=== PATIENT | male | born 1960 | race African-American/Black ===

== ENCOUNTER 2022-04-12 13:01 | Inpatient (IN) | payer MEDICARE, MEDICAID ==
[~2022-04-12] VITALS: Ht 182.9 cm; Wt 72.1 kg
[~2022-04-12 13:01] MED LIST: insulin
[2022-04-12] MEDS ORDERED: SODIUM CHLORIDE 0.9% 500 ML IV ONE (13:45)
[2022-04-12 16:15] LABS: BASOPHILS % 0.5 % (0.0-2.0); EOSINOPHILS % 2.1 % (0.0-5.0); HEMATOCRIT. 38.8 % (42.0-52.0); HEMOGLOBIN. 12.7 g/dL (14.0-18.0); MEAN CORPUSCULAR VOLUME 82.3 fL (80.0-94.0); MEAN PLATELET VOLUME 9.2 fl (7.4-10.4); NEUTROPHILS % 69.4 % (40.0-76.0); PLATELET 333 x1000/uL (130-400); RED BLOOD CELL COUNT 4.72 mill/uL (4.7-6.1); RED CELL DISTRIBUTION WIDTH 15.4 % (11.6-14.6)
[2022-04-12 16:20] LABS: CHLORIDE 109 mEq/L (98-107)
[2022-04-12 16:31] LABS: ETHANOL BLOOD < 10 mg/dL
[2022-04-12] MEDS ORDERED: GUAIFENESIN 200MG/10ML SUGAR FREE UDC PO PRN (17:00)
[2022-04-12] MEDS ORDERED: DEXTROSE 50% WATER 50ML SYRINGE IV PRN (17:00)
[2022-04-12] MEDS: BLOOD SUGAR DIAGNOSTIC STRIP TEST SCH ×2 (17:00→21:38)
[2022-04-12] MEDS ORDERED: ONDANSETRON HCL 4MG/2ML INJ IV PRN (17:00)
[2022-04-12] MEDS ORDERED: NITROGLYCERIN 0.4MG TABLET SL SL PRN (17:00)
[2022-04-12] MEDS ORDERED: ZOLPIDEM TARTRATE 5MG TABLET PO PRN (17:00)
[2022-04-12] MEDS ORDERED: TRAMADOL 50MG TABLET PO PRN (17:00)
[2022-04-12] MEDS ORDERED: KETOROLAC 15MG/ML VIAL IV PRN (17:00)
[2022-04-12] MEDS ORDERED: CLONIDINE 0.1MG TABLET PO PRN (17:00)
[2022-04-12] MEDS ORDERED: DOCUSATE SODIUM 100MG CAPSULE PO PRN (17:00)
[2022-04-12] MEDS ORDERED: MAGNESIUM/ALUMINUM HYDROXIDE/SIMETHICONE 30ML UDC PO PRN (17:00)
[2022-04-12] MEDS ORDERED: ACETAMINOPHEN 325MG TABLET PO PRN ×2 (17:00)
[2022-04-12] MEDS ORDERED: IPRATROPIUM/ALBUTEROL 0.5-3(2.5)MG/3ML NEB NEB PRN (17:00)
[2022-04-12 17:44] LABS: ETHANOL BLOOD < 10 mg/dL; HDL CHOLESTEROL 51 mg/dL (40-59); LDL CHOLESTEROL 31 mg/dL (5-100); TOTAL IRON BINDING CAPACITY 261 ug/dL (250-450)
[2022-04-12 18:08] LABS: FOLIC ACID (FOLATE) SERUM 7.5 ng/mL (>5.38)
[2022-04-12] MEDS: ENOXAPARIN 40MG/0.4ML SYR SUBCUT SCH (19:34)
[2022-04-12] MEDS: INSULIN LISPRO 100 UNITS/ML SUBCUT SCH ×2 (19:40→21:00)
[2022-04-12] MEDS: LISINOPRIL 20MG TABLET PO SCH (20:45)
[2022-04-12 21:10] VITALS: BP 99/58
[2022-04-12] MEDS: LEVETIRACETAM 500MG TABLET PO SCH (21:45)
[2022-04-13 00:49] LABS: CREATINE KINASE MB FRACTION 1.4 ng/mL (0.5-3.6)
[2022-04-13] MEDS ORDERED: TOPUD PO (02:45)
[2022-04-13] MEDS ORDERED: ZINC1CAP2 PO (03:24)
[2022-04-13] MEDS ORDERED: INSLIS SUBCUT (03:24)
[2022-04-13] MEDS ORDERED: ONDA4TAB50 MT (03:24)
[2022-04-13] MEDS ORDERED: MULT-1146 MT (03:24)
[2022-04-13] MEDS ORDERED: HYDR-4134 MT (03:24)
[2022-04-13] MEDS ORDERED: LEVE500T19 MT (03:24)
[2022-04-13] MEDS ORDERED: LOSA100T32 MT (03:24)
[2022-04-13] MEDS ORDERED: HYDR-4135 PO (03:24)
[2022-04-13] MEDS ORDERED: RISP0.2514 PO (03:24)
[2022-04-13] MEDS ORDERED: LORA2DIS5 SQ (03:24)
[2022-04-13] MEDS ORDERED: LORA2TAB95 MT (03:24)
[2022-04-13] MEDS ORDERED: ASCO500C18 MT (03:24)
[2022-04-13] MEDS ORDERED: B50 MT (03:24)
[2022-04-13] MEDS ORDERED: AMLO5TAB88 MT (03:24)
[2022-04-13] MEDS: BLOOD SUGAR DIAGNOSTIC STRIP TEST SCH ×4 (06:57→20:11)
[2022-04-13] MEDS: INSULIN LISPRO 100 UNITS/ML SUBCUT SCH ×4 (06:58→20:11)
[2022-04-13 07:11] LABS: CREATINE KINASE MB FRACTION 1.8 ng/mL (0.5-3.6)
[2022-04-13 08:00] VITALS: BP 112/60
[2022-04-13] MEDS: ASPIRIN 325MG EC TABLET PO SCH (09:10)
[2022-04-13] MEDS: LEVETIRACETAM 500MG TABLET PO SCH ×2 (09:10→21:19)
[2022-04-13] MEDS: LISINOPRIL 20MG TABLET PO SCH ×2 (09:12→21:19)
[2022-04-13 11:46] VITALS: BP 109/64
[2022-04-13 15:51] VITALS: BP 112/64
[2022-04-13 17:49] LABS: BASOPHILS % 0.7 % (0.0-2.0); EOSINOPHILS % 3.7 % (0.0-5.0); HEMATOCRIT. 32.7 % (42.0-52.0); HEMOGLOBIN. 10.8 g/dL (14.0-18.0); LYMPHOCYTES % 36.6 % (20.0-50.0); MEAN PLATELET VOLUME 8.9 fl (7.4-10.4); MONOCYTES % 7.4 % (2.0-8.0); NEUTROPHILS % 51.6 % (40.0-76.0); PLATELET 289 x1000/uL (130-400); RED BLOOD CELL COUNT 3.99 mill/uL (4.7-6.1); RED CELL DISTRIBUTION WIDTH 14.8 % (11.6-14.6)
[2022-04-13] MEDS: ENOXAPARIN 40MG/0.4ML SYR SUBCUT SCH (18:00)
[2022-04-13 18:16] LABS: CHLORIDE 111 mEq/L (98-107)
[2022-04-13 18:24] LABS: PHOSPHORUS 2.6 mg/dL (2.5-4.9)
[2022-04-13 19:45] LABS: CLARITY URINE CLEAR (CLEAR); COLOR URINE YELLOW (YELLOW); KETONES URINE NEGATIVE (NEGATIVE); LEUKOCYTE ESTERASE URINE NEGATIVE (NEGATIVE); NITRITE URINE NEGATIVE (NEGATIVE); OCCULT BLOOD URINE NEGATIVE (NEGATIVE); PH URINE 5.5 (4.5-8.0); PROTEIN URINE 2+ (NEGATIVE); UROBILINOGEN URINE 0.2 E.U./dL (0.2-1.0)
[2022-04-13 20:00] VITALS: BP 149/78
[2022-04-13 20:05] LABS: *AMPHETAMINES SCREEN URINE NEGATIVE (NEGATIVE); *BARBITURATES SCREEN URINE NEGATIVE (NEGATIVE); *BENZODIAZEPINES SCREEN URINE NEGATIVE (NEGATIVE); *COCAINE SCREEN URINE NEGATIVE (NEGATIVE); CANNABINOID URINE SCREEN NEGATIVE (NEGATIVE); METHADONE URINE SCREEN NEGATIVE (NEGATIVE); OPIATES URINE SCREEN NEGATIVE (NEGATIVE); PHENCYCLIDINE URINE SCREEN NEGATIVE (NEGATIVE)
[2022-04-14] VITALS: BP 146/89
[2022-04-14 04:00] VITALS: BP 126/67
[2022-04-14] MEDS: BLOOD SUGAR DIAGNOSTIC STRIP TEST SCH ×2 (06:57→12:20)
[2022-04-14] MEDS: INSULIN LISPRO 100 UNITS/ML SUBCUT SCH ×2 (07:48→12:32)
[2022-04-14 08:10] VITALS: BP 149/99
[2022-04-14] MEDS: LEVETIRACETAM 500MG TABLET PO SCH (08:13)
[2022-04-14] MEDS: LISINOPRIL 20MG TABLET PO SCH (08:13)
[2022-04-14] MEDS: ASPIRIN 325MG EC TABLET PO SCH (08:13)
[2022-04-14] MEDS ORDERED: CLOPIDOGREL 75MG TABLET PO SCH (11:00)
[2022-04-14 12:00] VITALS: BP 138/79
[2022-04-14 16:00] VITALS: BP 150/78
[2022-04-15] MEDS ORDERED: ASPIRIN 81MG EC TABLET PO SCH (09:00)
== END 2022-04-14 17:05 | disposition left against medical advice (07) | DRG 40 ==
LOC: ER 13:24 → SUPCPDRO 15:17 → MICUSO 16:43 → 6WST 04-13 02:30
PROVIDERS: ADMIT Internal Medicine; ATTEND Internal Medicine
PROC: 0JBR0ZZ Excision of Left Foot Subcutaneous Tissue and Fascia, Open Approach (ICD-10-PCS; principal; 2022-04-13)
DX: I63.81 Other cerebral infarction due to occlusion or stenosis of small artery (principal); G92.8 Other toxic encephalopathy; I10 Essential (primary) hypertension; G40.909 Epilepsy, unspecified, not intractable, without status epilepticus; D64.9 Anemia, unspecified; E11.628 Type 2 diabetes mellitus with other skin complications; Z79.4 Long term (current) use of insulin; Z89.422 Acquired absence of other left toe(s); Z79.899 Other long term (current) drug therapy; S91.302A Unspecified open wound, left foot, initial encounter; Z53.29 Procedure and treatment not carried out because of patient's decision for other reasons
CPT/HCPCS: 36415; 70551; 71045; 80053; 80061; 80305; 80320; 81003; 82550; 82553; 82607; 82746; 82962; 83036; 83540; 83550; 83735; 83880; 84100; 84443; 84484; 85025; 92523; 93005; 93923; 93970; 97162; 99285; J1650; J7040; G0480